=== PATIENT | male | born 1965 | race Caucasian/White ===

== ENCOUNTER → 2016-07-26 | Outpatient (CLI) | payer OTHER ==
[2016-07-26 10:20] LABS: ABSOLUTE EOSINOPHILS # (AUTO) 0.2 10^3/uL (0.0-0.6); ABSOLUTE LYMPHOCYTES (AUTO) 1.3 10^3/uL (0.5-4.7); ABSOLUTE MONOCYTES (AUTO) 0.5 10^3/uL (0.1-1.4); BASOPHILS % (AUTO) 0.4 % (0-2); EOSINOPHILS % (AUTO) 4.8 % (0-6); HEMATOCRIT 46.8 % (37.9-51.0); HGB HCT DIFFERENCE 1.2; LYMPHOCYTES % (AUTO) 26.3 % (13-45); MEAN CORPUSCULAR HGB CONC 34.2 g/dL (32.0-36.0); MEAN CORPUSCULAR VOLUME 91 fl (80-97); MONOCYTES % (AUTO) 9.1 % (3-13); RED BLOOD COUNT 5.15 10^6/uL (4.35-5.55); RED CELL DISTRIBUTION WIDTH 12.9 % (11.5-14.0); SEGMENTED NEUTROPHILS % (AUTO) 59.4 % (42-78); WHITE BLOOD COUNT 5.1 10^3/uL (4.0-10.5)
[2016-07-26 10:39] LABS: ALANINE AMINOTRANSFERASE 274 U/L (21-72); ALBUMIN 4.4 g/dL (3.5-5.0); ALKALINE PHOSPHATASE 118 U/L (38-126); ASPARTATE AMINO TRANSFERASE 164 U/L (17-59); BILIRUBIN,DIRECT 0.4 mg/dL (0.0-0.4); BILIRUBIN,TOTAL 1.3 mg/dL (0.2-1.3); CHOLESTEROL 191.03 mg/dL (0-200); Direct HDL 43 mg/dL (>40); TOTAL PROTEIN 7.1 g/dL (6.3-8.2); TRIGLYCERIDES 130 mg/dL (<150)
[2016-07-26 10:50] LABS: DIRECT LDL 125 mg/dL (<100)
== END ==
LOC: CCC 09:20
DX: E11.8 Type 2 diabetes mellitus with unspecified complications (principal); R74.8 Abnormal levels of other serum enzymes
CPT/HCPCS: 36415; 80061; 80076; 83036; 84443; 85025

== ENCOUNTER → 2016-08-11 | Outpatient (CLI) | payer OTHER | LOC: CCC 12:05 | DX: Z00.00 Encounter for general adult medical examination without abnormal findings (principal) | CPT/HCPCS: 36415; 80074 ==

== ENCOUNTER 2016-09-26 15:00 | Emergency (ER) | payer OTHER ==
[2016-09-26 15:18] VITALS: BP 107/71
--- NOTE | 2016-09-26 17:57 | EKG REPORT ---
SEVERITY:- OTHERWISE NORMAL ECG - SINUS RHYTHM LEFT AXIS DEVIATION : Confirmed by: Cece Blount MD 26-Sep-2016 17:57:09
== END 2016-09-26 15:58 | disposition left against medical advice (07) ==
LOC: ER 15:00
DX: Z53.9 Procedure and treatment not carried out, unspecified reason (principal); R07.9 Chest pain, unspecified
CPT/HCPCS: 93005; 93010

== ENCOUNTER → 2017-10-06 | Outpatient (CLI) | payer MEDICAID ==
--- NOTE | 2017-10-06 13:35 | RADIOLOGY REPORT (SQ) ---
EXAM DESCRIPTION: U/S ABDOMEN LIMITED W/O DOP COMPLETED DATE/TIME: 10/06/2017 10:41 am REASON FOR STUDY: CHRONIC VIRAL HEPATITIS C B18.2 CHRONIC VIRAL HEPATITIS C COMPARISON: CT abdomen and pelvis examination dated 03/20/2013. TECHNIQUE: Dynamic and static grayscale images acquired of the abdomen and recorded on PACS. Additio nal selected color Doppler and spectral images recorded. LIMITATIONS: None. FINDINGS: PANCREAS: The pancreas is suboptimally visualized due to overlying bowel gas. LIVER: The liver measures 18.0 cm, mildly prominent in size. LIVER VASCULATURE: Normal directional flow of the main portal vein and hepatic veins. GALLBLADDER: Prior cholecystectomy. ULTRASOUND-DETECTED HOROWITZ'S SIGN: Negative. INTRAHEPATIC DUCTS AND COMMON DUCT: CBD measures 7.2 mm in diameter in a post cholecystectomy patient . AORTA: No aneurysm. RIGHT KIDNEY: The right kidney measures 12.1 cm in length, normal size. Normal echogenicity. No hilary d or suspicious masses. No hydronephrosis. No calcifications. PERITONEAL AND RIGHT PLEURAL SPACE: No ascites or effusions. OTHER: No other significant findings. IMPRESSION: 1 Prior cholecystectomy. 2 The pancreas is suboptimally visualized due to overlying bowel gas. TECHNICAL DOCUMENTATION: JOB ID: [id number] [employer]- All Rights Reserved Reading location - IP/workstation name: [email or web address]
== END ==
LOC: RAD 10:10
PROVIDERS: ATTEND Internal Medicine Gastroenterology
DX: B18.2 Chronic viral hepatitis C (principal)
CPT/HCPCS: 76705

== ENCOUNTER 2018-09-05 16:28 | Emergency (ER) | payer MEDICAID, OTHER ==
--- NOTE | 2018-09-05 17:29 | ER Document Report ---
ED General - General Chief Complaint: Abscess Stated Complaint: POSSIBLE INSECT BITE Time Seen by Provider: 09/05/18 17:20 Primary Care Provider: SEAN SIMPSON MD [Primary Care Provider] - Follow up as needed Mode of Arrival: Ambulatory Information source: Patient TRAVEL OUTSIDE OF THE [place] IN LAST 30 DAYS: No - HPI Patient complains to provider of: Abscess to left lower extremity Onset: Other - 2 to 3 days ago Onset/Duration: Gradual, Worse Quality of pain: Sharp Severity: Moderate Pain Level: 2 Associated symptoms: denies: Chills, Diarrhea, Fever, Nausea, Vomiting Exacerbated by: Movement Relieved by: Denies Similar symptoms previously: No Recently seen / treated by doctor: No Notes: 53-year-old male with history of type 2 diabetes on multiple meds here with an abscess developing on the back of his left lower extremity. Started off small and getting worse. No drainage. No fevers or shaking chills. No nausea or vomiting. - Related Data Allergies/Adverse Reactions: Corticosteroids (Glucocorticoids) Allergy (Severe, Verified 09/05/18 16:29) Coma Past Medical History - General Information source: Patient - Social History Smoking Status: Smoker,Current Status Unk Family History: DM, Malignancy Endocrine Medical History: Reports: Hx Diabetes Mellitus Type 2 Renal/ Medical History: Denies: Hx Peritoneal Dialysis GI Medical History: Reports: Hx Gastroesophageal Reflux Disease Musculoskeletal Medical History: Reports Hx Musculoskeletal Trauma Past Surgical History: Reports: Hx Cholecystectomy, Hx Tonsillectomy - Immunizations Immunizations up to date: Yes Hx Diphtheria, Pertussis, Tetanus Vaccination: Yes Review of Systems - Review of Systems Notes: Constitutional: No fevers. No chills. EENT: No eye redness. No eye pain. No ear pain. No sore throat. Cardiovascular: No chest pain. No palpitations. Respiratory: No cough. No shortness of breath. No respiratory distress. Gastrointestinal: No abdominal pain. No nausea, vomiting, or diarrhea. Genitourinary: Atraumatic. No lesions. No pain. No discharge. Musculoskeletal: Atraumatic. No swelling. No deformities. Skin: Positive for abscess left lower extremity Lymphatic: No swollen lymph nodes. Neurologic: No headache. No syncope. Psychiatric: No suicidal or homicidal ideation. Physical Exam - Vital signs Vitals: Temp Pulse Resp BP Pulse Ox 98.3 F 91 16 128/76 H 96 09/05/18 16:58 09/05/18 16:58 09/05/18 16:58 09/05/18 16:58 09/05/18 16:58 - Notes Notes: General: Well-developed, well-nourished. In no acute distress. Non-toxic appearing. Cardiac: Well-perfused. Regular rate and rhythm. No murmurs, rubs, or gallops. Pulmonary: No respiratory distress. No cyanosis. Bilateral lung fiels are clear to auscultation. Abdominal: Non-distended. Non-rigid. Bowels sounds are present in all four quadrants. No guarding or rebound. HEENT: Head is atraumatic. Conjunctivae not reddened. No tearing. PERRL. EOMI. Orbits atraumatic. No periorbital swelling or erythema. Oropharynx is without erythema, swelling, or exudates. Neck: Supple. No adenopathy. No meningismus. Dermatologic: There is a semi-fluctuant abscess approximately the diameter of a quarter to the left lower extremity posterior aspect just lateral to the popliteal region. Tender to palpate. No lymphangitis. Chest: Atraumatic. No chest wall tenderness to palpation. Musculoskeletal: Moves all extremities well. No range of motion deficits. no muscular or joint tenderness. No paraspinal muscle tenderness. no midline spinal tenderness or step-off. Genitourinary: Examination deferred Neurologic: No gross neurologic deficits. Psychiatric: Normal mood. Course - Re-evaluation Re-evalutation: 09/05/18 17:29 Will prep for incision and drainage. - Vital Signs Vital signs: Temp Pulse Resp BP Pulse Ox 98.3 F 91 16 128/76 H 96 09/05/18 16:58 09/05/18 16:58 09/05/18 16:58 09/05/18 16:58 09/05/18 16:58 Procedures - Incision and Drainage left LLE Type: Simple Anesthetic type: 1% Lidocaine mL's of anesthetic: 5 Blade size: 11 I&D procedure: Shurclens applied, Sterile dressing applied Incision Method: Incision made by scalpel Amount/type of drainage: moderate pus, cystic material Discharge - Discharge Clinical Impression: Infected sebaceous cyst of skin Condition: Good Disposition: HOME, SELF-CARE Instructions: Post Incision and Drainage, Trimethoprim-Sulfa ([facility]), Abscess ([facility]) Additional Instructions: We will notify you if your culture reveals that you need to be on a different antibiotic based on what we find. The culture typically takes 2-3 business days to fully result. Prescriptions: Sulfamethoxazole/Trimethoprim [Bactrim Ds Tablet] 1 each PO BID 10 Days #20 tablet Referrals: SEAN SIMPSON MD [Primary Care Provider] - Follow up as needed
[2018-09-05 18:19] VITALS: BP 141/81
== END 2018-09-05 18:20 | disposition home or self-care (01) ==
LOC: ER 16:28
DX: L02.416 Cutaneous abscess of left lower limb (principal); L72.3 Sebaceous cyst; E11.9 Type 2 diabetes mellitus without complications; Z79.899 Other long term (current) drug therapy; Z88.8 Allergy status to other drugs, medicaments and biological substances
CPT/HCPCS: 87070; 87075; 87077; 87205; 99283

== ENCOUNTER 2019-04-17 01:15 | Emergency (ER) | payer MEDICAID ==
[2019-04-17 02:57] LABS: APPEARANCE,URINE SLIGHTLY-CLOUDY; BILIRUBIN,URINE MODERATE (NEGATIVE); COLOR,URINE AMBER; GLUCOSE, URINE NEGATIVE (NEGATIVE); KETONES,URINE 80 mg/dL (NEGATIVE); LEUKOCYTE ESTERASE,URINE NEGATIVE (NEGATIVE); NITRITE,URINE NEGATIVE (NEGATIVE); PROTEIN,URINE 30 mg/dL (NEGATIVE); URINE SPECIFIC GRAVITY 1.028
[2019-04-17 03:00] LABS: ABSOLUTE EOSINOPHILS # (AUTO) 0.3 10^3/uL (0.0-0.6); ABSOLUTE LYMPHOCYTES (AUTO) 2.4 10^3/uL (0.5-4.7); ABSOLUTE MONOCYTES (AUTO) 0.5 10^3/uL (0.1-1.4); ABSOLUTE NEUT (AUTO) 5.4 10^3/uL (1.7-8.2); BASOPHILS % (AUTO) 0.4 % (0-2); EOSINOPHILS % (AUTO) 3.7 % (0-6); HEMATOCRIT 49.1 % (37.9-51.0); HEMOGLOBIN 16.9 g/dL (13.5-17.0); LYMPHOCYTES % (AUTO) 27.7 % (13-45); MEAN CORPUSCULAR HEMOGLOBIN 31.9 pg (27.0-33.4); MEAN CORPUSCULAR HGB CONC 34.3 g/dL (32.0-36.0); MEAN CORPUSCULAR VOLUME 93 fl (80-97); MONOCYTES % (AUTO) 5.9 % (3-13); PLATELET COUNT 205 10^3/uL (150-450); RED CELL DISTRIBUTION WIDTH 14.9 % (11.5-14.0); SEGMENTED NEUTROPHILS % (AUTO) 62.3 % (42-78); TOTAL CELLS COUNTED % (AUTO) 100 %; WHITE BLOOD COUNT 8.7 10^3/uL (4.0-10.5)
[2019-04-17] MEDS ORDERED: GABAPENTIN 300 MG CAPSULE PO ONE (03:05)
[2019-04-17] MEDS ORDERED: PROMETHAZINE HCL 25 MG TABLET PO ONE (03:05)
[2019-04-17 03:08] LABS: ALBUMIN 4.4 g/dL (3.5-5.0); ALKALINE PHOSPHATASE 90 U/L (38-126); ANION GAP 12 (5-19); ASPARTATE AMINO TRANSFERASE 20 U/L (17-59); BILIRUBIN,DIRECT 0.2 mg/dL (0.0-0.4); BILIRUBIN,TOTAL 1.1 mg/dL (0.2-1.3); BLOOD UREA NITROGEN 12 mg/dL (7-20); CALCIUM 9.6 mg/dL (8.4-10.2); CARBON DIOXIDE 25 mmol/L (22-30); CHLORIDE 104 mmol/L (98-107); GLUCOSE 147 mg/dL (75-110); POTASSIUM 3.5 mmol/L (3.6-5.0)
[2019-04-17 03:09] LABS: ACETAMINOPHEN < 10 ug/mL (10-30); ALCOHOL < 10 mg/dL (NONE DETECTED); SALICYLATE < 1.0 mg/dL (2.0-20.0); TOTAL PROTEIN 7.6 g/dL (6.3-8.2)
--- NOTE | 2019-04-17 03:09 | ER Document Report ---
ED Substance Abuse / Acc. OD - General Chief Complaint: Medical Clearance Stated Complaint: POSSIBLE HEROINE DETOX Time Seen by Provider: 04/17/19 02:56 Primary Care Provider: JESS KATZ MD [Primary Care Provider] - Follow up as needed Notes: Patient is a 53-year-old male that comes emergency department for chief complaint of opiate withdrawal and wanting detox. Patient states that he has had opiate addiction before, he used to abuse Percocets, he states he has been clean for 3 years but 3 weeks ago he ran into an old friend and they started using heroin. He states for the past 3 weeks they have been using, last dose was 4 AM yesterday, he states that he started getting sick feeling, nauseated, vomited 3 times. He denies abdominal pain, chest pain, fever. He states he came with mobile crisis who recommended him come to the emergency department because they could not find an immediate bed placement. Patient has history of type 2 diabetes, hypertension, CAD with stents. He states he smokes marijuana occasionally, denies cigarette use, denies alcohol. He denies SI or HI. TRAVEL OUTSIDE OF THE [place] IN LAST 30 DAYS: No - Related Data Allergies/Adverse Reactions: Corticosteroids (Glucocorticoids) Allergy (Severe, Verified 09/05/18 16:29) Coma Home Medications: lantus. humalog. metoprolol succinate. metformin. gabapentin. prozac. xanax. aspirin. lipitor Past Medical History - General Information source: Patient - Social History Smoking Status: Never Smoker Frequency of alcohol use: None Drug Abuse: Heroin, Prescription drugs Lives with: Alone Family History: DM, Malignancy Patient has suicidal ideation: No Patient has homicidal ideation: No - Past Medical History Cardiac Medical History: Reports: Hx Coronary Artery Disease, Hx Hypertension Endocrine Medical History: Reports: Hx Diabetes Mellitus Type 2 Renal/ Medical History: Denies: Hx Peritoneal Dialysis GI Medical History: Reports: Hx Gastroesophageal Reflux Disease Musculoskeletal Medical History: Reports Hx Musculoskeletal Trauma Past Surgical History: Reports: Hx Cardiac Catheterization, Hx Cholecystectomy, Hx Coronary Stent, Hx Tonsillectomy - Immunizations Immunizations up to date: Yes Hx Diphtheria, Pertussis, Tetanus Vaccination: Yes Review of Systems - Review of Systems Constitutional: See HPI EENT: No symptoms reported Cardiovascular: No symptoms reported Respiratory: No symptoms reported Gastrointestinal: See HPI Genitourinary: No symptoms reported Male Genitourinary: No symptoms reported Musculoskeletal: No symptoms reported Skin: No symptoms reported Hematologic/Lymphatic: No symptoms reported Neurological/Psychological: See HPI Physical Exam - Vital signs Vitals: Temp Pulse Resp BP Pulse Ox 97.6 F 86 18 135/87 H 99 04/17/19 01:24 04/17/19 01:24 04/17/19 01:24 04/17/19 01:24 04/17/19 01:24 - Notes Notes: GENERAL: Alert, interacts well. Somewhat disheveled, yadira. HEAD: Normocephalic, atraumatic. EYES: Pupils equal, round, and reactive to light. Extraocular movements intact. ENT: Oral mucosa dry, tongue midline. Oropharynx unremarkable. Airway patent. NECK: Full range of motion. Supple. Trachea midline. LUNGS: Clear to auscultation bilaterally, no wheezes, rales, or rhonchi. No respiratory distress. HEART: Regular rate and rhythm. No murmur ABDOMEN: Soft, non-tender. Non-distended. Bowel sounds present in all 4 quadrants. EXTREMITIES: Moves all 4 extremities spontaneously. No edema, normal radial and dorsalis pedis pulses bilaterally. No cyanosis. BACK: no cervical, thoracic, lumbar midline tenderness. No saddle anesthesia, normal distal neurovascular exam. Moves all extremities in full range of motion. NEUROLOGICAL: Alert and oriented x3. Normal speech. Cranial nerves II through XII grossly intact. PSYCH: Normal affect, normal mood. Makes good eye contact, pleasant SKIN: Warm, dry, normal turgor. No rashes or lesions noted. Course - Re-evaluation Re-evalutation: Patient disheveled, appears much older than his stated age, however he has clear lungs, soft abdomen, unremarkable vital signs. He does have very dry mucous membranes, he was given Phenergan and gabapentin for opiate withdrawal symptoms, he tolerated this very well, drink plenty of oral fluids, fell asleep. Before he did so I had a long discussion with the patient. Patient is very determined to enter detox, states he was sober for years until he relapsed for a brief period and he states he is determined to get past the withdrawals and off of opiates. He is not suicidal or homicidal. We did call [facility] and at this moment they do not have an available bed but there might be one opening up soon. Patient states he would prefer to go to [facility] but he is in general looking for a place. CBC, chemistry, urinalysis showing elevated specific gravity, some ketones, but are otherwise unremarkable. EKG without concerning findings, drug screen is consistent with patient's reported uses. Asymptomatic on reevaluation. Patient is medically cleared pending mental health evaluation and hopefully placement in detox. - Vital Signs Vital signs: Temp Pulse Resp BP Pulse Ox 97.6 F 86 18 135/87 H 99 04/17/19 01:24 04/17/19 01:24 04/17/19 01:24 04/17/19 01:24 04/17/19 01:24 - Laboratory Result Diagrams: 04/17/19 02:39 04/17/19 02:39 Laboratory results interpreted by me: 04/17/19 04/17/19 04/17/19 02:39 02:39 02:39 RDW 14.9 H Potassium 3.5 L Glucose 147 H Urine Protein 30 H Urine Ketones 80 H Urine Bilirubin MODERATE H Urine Urobilinogen 4.0 H Salicylates < 1.0 L Acetaminophen < 10 L - EKG Interpretation by Me Additional EKG results interpreted by me: EKG shows sinus rhythm at a rate of 76, QTC of 428, left axis deviation is present, no T wave inversions or ST segment changes in consecutive leads. Discharge - Discharge Clinical Impression: Opiate dependence Qualifiers: Substance use status: in withdrawal Qualified Code(s): F11.23 - Opioid dependence with withdrawal Vomiting Qualifiers: Vomiting type: unspecified Vomiting Intractability: non-intractable Nausea presence: with nausea Qualified Code(s): R11.2 - Nausea with vomiting, unspecified Condition: Stable Disposition: PSYCH HOSP/UNIT Referrals: JESS KATZ MD [Primary Care Provider] - Follow up as needed
[2019-04-17 03:42] LABS: URINE AMPHETAMINES SCREEN NEGATIVE; URINE BARBITURATES SCREEN NEGATIVE; URINE COCAINE SCREEN NEGATIVE; URINE METHADONE SCREEN NEGATIVE; URINE PHENCYCLIDINE SCREEN NEGATIVE
[2019-04-17 03:43] LABS: URINE BENZODIAZEPINES SCREEN UNCONFIRMED POSITIVE; URINE MARIJUANA (THC) SCREEN UNCONFIRMED POSITIVE
[2019-04-17 09:05] VITALS: BP 138/88
--- NOTE | 2019-04-17 10:24 | PSYCHOLOGICAL NOTE ---
Psych Note - Psych Note Date seen by psych provider: 04/17/19 Time seen by psych provider: 08:15 Psych Note: Purpose of Consult: Medical clearance for substance abuse treatment placement Patient is a 53 year old male who presents to the ED via POV with substance abuse concerns when mobile crisis could not find availability with appropriate detox center. Patient's urine drug screen is positive for opiates, benzos, and THC. Per chart review, patient denies SI/HI. Patient states he was clean for 3 years and relapsed at [place] when he "ran into an old friend." Patient is requesting assistance with substance abuse treatment. Patient states he was not feeling well. Clinician will attempt later when patient's condition improves. Impression/Plan: Patient is cleared from acute psychiatric services. Plan is to assist with placement for substance abuse treatment facility. Dr. Mckeon was consulted on the care and management of this patient; attending physician is in agreement with recommendations and disposition.
--- NOTE | 2019-04-17 11:28 | EKG REPORT ---
SEVERITY:- OTHERWISE NORMAL ECG - SINUS RHYTHM LEFT AXIS DEVIATION : Confirmed by: Soni So 17-Apr-2019 11:27:36
== END 2019-04-17 12:45 | disposition home or self-care (01) ==
LOC: ER 01:15
DX: F11.23 Opioid dependence with withdrawal (principal); R11.2 Nausea with vomiting, unspecified; I25.10 Atherosclerotic heart disease of native coronary artery without angina pectoris; I10 Essential (primary) hypertension; E11.9 Type 2 diabetes mellitus without complications
CPT/HCPCS: 93005; 99285; 36415; 80307 ×4; 85025; 80053; 81001; 93010; J3490 ×2

== ENCOUNTER 2019-08-19 20:42 | Emergency (ER) | payer OTHER ==
[2019-08-19 20:48] VITALS: BP 136/86
== END 2019-08-20 00:03 | disposition left against medical advice (07) ==
LOC: ER 20:42
DX: Z53.21 Procedure and treatment not carried out due to patient leaving prior to being seen by health care provider (principal); L98.9 Disorder of the skin and subcutaneous tissue, unspecified

== ENCOUNTER 2019-08-20 00:11 | Emergency (ER) | payer MEDICAID, OTHER ==
[2019-08-20] MEDS ORDERED: LIDOCAINE 1%/EPINEPHRINE INJ 20 ML VIAL INJ ONE (01:04)
--- NOTE | 2019-08-20 01:42 | ER Document Report ---
ED Wound - General Chief Complaint: Wound Infection Stated Complaint: POSSIBLE CYST ON BACK Time Seen by Provider: 08/20/19 00:15 Primary Care Provider: JESS KATZ MD [Primary Care Provider] - Follow up in 3-5 days Notes: Patient is a 54-year-old male who presents to the emergency department with a chief complaint of an abscess to his right side of his back. Patient states that about a month ago he noticed that he had a possible cyst. He states that he spoke with his primary care provider in regards to this issue, and states his primary care provider "did nothing" about the cyst. Patient has not seen buddy matology in regards to this. Patient admits to attempting to squeeze the area, but states that nothing would come out. He denies any fevers, body aches, chills, or any other symptoms. Denies any history of IV drug abuse, but states that he has a history of opioid addiction. He states that he has not gotten help for this. States that he was taking some Percocets at home that he had "leftover from before." Patient had checked into the emergency department earlier in the night, but had to wait in his car due to COVID pandemic and attempted to leave. He then called back and return to the emergency department for this visit. Patient states that he is a diabetic. Denies any spine pain. According to his medical record, he did do heroin, but denies IV use of it. Patient denies any paresthesias, loss of bladder or bowel function, or any other neurological symptoms. TRAVEL OUTSIDE OF THE [place] IN LAST 30 DAYS: No - Related Data Allergies/Adverse Reactions: Corticosteroids (Glucocorticoids) Allergy (Severe, Verified 09/05/18 16:29) Coma Past Medical History - General Information source: Patient - Social History Smoking Status: Never Smoker Family History: DM, Malignancy Patient has homicidal ideation: No - Past Medical History Cardiac Medical History: Reports: Hx Coronary Artery Disease, Hx Hypertension Endocrine Medical History: Reports: Hx Diabetes Mellitus Type 2 Renal/ Medical History: Denies: Hx Peritoneal Dialysis GI Medical History: Reports: Hx Gastroesophageal Reflux Disease Musculoskeletal Medical History: Reports Hx Musculoskeletal Trauma Past Surgical History: Reports: Hx Cardiac Catheterization, Hx Cholecystectomy, Hx Coronary Stent, Hx Tonsillectomy - Immunizations Immunizations up to date: Yes Hx Diphtheria, Pertussis, Tetanus Vaccination: Yes Review of Systems - Review of Systems Notes: REVIEW OF SYSTEMS: CONSTITUTIONAL : Denies recent illness. Denies recent unintentional weight loss. Denies fever, chills, or sweats. EENT: Denies eye, ear, throat, or mouth pain, discharge, or symptoms. Denies nasal or sinus congestion. CARDIOVASCULAR: Denies chest pain. RESPIRATORY: Denies shortness of breath, cough, congestion, difficulty breathing, or wheezing. GASTROINTESTINAL: Denies nausea, vomiting, and diarrhea. Denies abdominal pain. Denies constipation. GENITOURINARY: Denies difficulty urinating, burning, blood in urine, urgency or frequency. MUSCULOSKELETAL: Denies neck and back pain. Denies joint pain or swelling. SKIN: See HPI. HEMATOLOGIC : Denies easy bruising or bleeding. LYMPHATIC: Denies swollen, painful, enlarged glands. NEUROLOGICAL: Denies no numbness or tingling denies weakness. Denies headache. Denies altered mental status. Denies alteration in speech. PSYCHIATRIC: Denies stress, anxiety, alteration in sleep patterns, or depression. All other systems reviewed and negative. Physical Exam - Vital signs Vitals: Temp Pulse Resp BP Pulse Ox 99.4 F 109 H 20 116/77 100 08/20/19 00:14 08/20/19 00:14 08/20/19 00:14 08/20/19 00:08/20/19 00:14 - Notes Notes: PHYSICAL EXAMINATION: GENERAL: Appears disheveled, older than stated age, no acute distress. HEAD: Normocephalic, atraumatic. EYES: PERRL, conjunctiva normal, all extraocular movements intact, sclera nonicteric ENT: Dry mucous membranes. NECK: Supple, no noticeable swelling, redness, rash. Normal range of motion. LUNGS: Equal breath sounds bilaterally and clear to auscultation. No wheezes rales or rhonchi. CARDIOVASCULAR: S1-S2, regular rate, regular rhythm. Radial pulses 2+, normal. ABDOMEN: Normoactive bowel sounds. Soft, nontender, no guarding, no rebound tenderness, and no masses palpated. EXTREMITIES: Normal strength and range of motion, no pitting or edema. No cyanosis. NEUROLOGICAL: Moves all extremities upon command. Strength 5/5 in all extremities. PSYCH: Normal mood, normal affect. SKIN: Warm, dry. Abscess noted to right side of back. See diagram and procedure note for details. Course - Re-evaluation Re-evalutation: 08/20/19 03:55 Differential diagnosis includes but normal limited to: abscess, dermoid cyst, sebaceous cyst, furnucle, or others. Based on patient's physical exam and history, this is an abscess developed from a sebaceous cyst. It was drained in the ER. There is surrounding cellulitis. Based on patient's physical exam and these factors, they will treated with antibiotics. See procedure note. A very low suspicion for the abcess to have spinal involvement. Patient is to follow-up here in the emergency department in 2 days to have his packing removed. He is in agreement with this plan. He expressed gratefulness for his care. Follow-up precautions were given. Verbal discharge instructions were given to the patient. They verbalized understa nding. They are stable for discharge. - Vital Signs Vital signs: Temp Pulse Resp BP Pulse Ox 98.8 F 87 18 115/76 100 08/20/19 03:42 08/20/19 03:42 08/20/19 03:42 08/20/19 03:42 08/20/19 03:42 - Laboratory Result Diagrams: 08/20/19 02:24 08/20/19 02:24 Laboratory results interpreted by me: 08/20/19 08/20/19 02:24 02:24 MCH 33.8 H Sodium 135.2 L Creatinine 0.48 L Glucose 252 H Procedures - Incision and Drainage Right medial back Type: Simple, Single Anesthetic type: 1% Lidocaine w/epi mL's of anesthetic: 10 Blade size: 11 I&D procedure: Shurclens applied, Iodoform packing placed, Sterile dressing applied Incision Method: Incision made with needle Amount/type of drainage: 15 mls/purulent; blood; with cyst casing Adult Front & Back picture: 1 - Abscess with surrounding cellulitis. Discharge - Discharge Clinical Impression: Abscess Cellulitis Qualifiers: Site of cellulitis: trunk Site of cellulitis of trunk: back Qualified Code(s): L03.312 - Cellulitis of back [any part except buttock] Condition: Stable Disposition: HOME, SELF-CARE Instructions: Soap Cleansing ([facility]) Additional Instructions: You were seen for an abscess that required drainage. Please clean this area with soap and water twice daily and apply a topical antibiotic. Dress the area after each cleaning. Please return if you develop fever, vomiting, the pain at the site worsens, you notice spreading redness from the area, or you have any other symptoms that are concerning to you. Return on morning to have your wound rechecked. Keep the packing in until then. The rash is likely due to infection of your skin. You need to take the antibiotics as prescribed. Do not stop even if the rash goes away until you have completed all the antibiotics. The area of redness was traced out here in the emergency department with a marking pen. You need to return to emergency department if the redness spreads outside of this area by more than 2 cm in any direction. You should also return if you develop fevers with temperature greater than 101, persistent vomiting, worsening pain, or have any other symptoms that are concerning to you. Prescriptions: Clindamycin HCl [Cleocin 150 mg Capsule] 300 mg PO Q6 7 Days #56 capsule Referrals: JESS KATZ MD [Primary Care Provider] - Follow up in 3-5 days
[2019-08-20 02:49] LABS: ABSOLUTE EOSINOPHILS # (AUTO) 0.1 10^3/uL (0.0-0.6); ABSOLUTE LYMPHOCYTES (AUTO) 2.1 10^3/uL (0.5-4.7); ABSOLUTE MONOCYTES (AUTO) 0.5 10^3/uL (0.1-1.4); ABSOLUTE NEUT (AUTO) 4.8 10^3/uL (1.7-8.2); BASOPHILS % (AUTO) 0.3 % (0-2); EOSINOPHILS % (AUTO) 1.9 % (0-6); HEMATOCRIT 42.1 % (37.9-51.0); HEMOGLOBIN 14.8 g/dL (13.5-17.0); LYMPHOCYTES % (AUTO) 27.3 % (13-45); MEAN CORPUSCULAR HEMOGLOBIN 33.8 pg (27.0-33.4); MEAN CORPUSCULAR HGB CONC 35.3 g/dL (32.0-36.0); MEAN CORPUSCULAR VOLUME 96 fl (80-97); MONOCYTES % (AUTO) 6.9 % (3-13); PLATELET COUNT 179 10^3/uL (150-450); RED BLOOD COUNT 4.39 10^6/uL (4.35-5.55); RED CELL DISTRIBUTION WIDTH 13.2 % (11.5-14.0); SEGMENTED NEUTROPHILS % (AUTO) 63.6 % (42-78); TOTAL CELLS COUNTED % (AUTO) 100 %; WHITE BLOOD COUNT 7.5 10^3/uL (4.0-10.5)
[2019-08-20 02:57] LABS: ALBUMIN 4.2 g/dL (3.5-5.0); ALKALINE PHOSPHATASE 87 U/L (38-126); ANION GAP 7 (5-19); ASPARTATE AMINO TRANSFERASE 22 U/L (17-59); BILIRUBIN,TOTAL 0.9 mg/dL (0.2-1.3); BLOOD UREA NITROGEN 12 mg/dL (7-20); CARBON DIOXIDE 27 mmol/L (22-30); CHLORIDE 101 mmol/L (98-107); GLUCOSE 252 mg/dL (75-110); POTASSIUM 3.7 mmol/L (3.6-5.0)
[2019-08-20] MEDS ORDERED: CLINDAMYCIN HCL 150 MG CAPSULE PO ONE (03:38)
[2019-08-20 03:46] VITALS: BP 115/76
== END 2019-08-20 04:05 | disposition home or self-care (01) ==
LOC: ER 00:11
PROC: 0H96XZZ Drainage of Back Skin, External Approach (ICD-10-PCS; principal; 2019-08-20)
DX: L02.212 Cutaneous abscess of back [any part, except buttock and flank] (principal); L03.312 Cellulitis of back [any part except buttock and flank]; Z79.899 Other long term (current) drug therapy; E11.9 Type 2 diabetes mellitus without complications; Z88.8 Allergy status to other drugs, medicaments and biological substances; I25.10 Atherosclerotic heart disease of native coronary artery without angina pectoris; I10 Essential (primary) hypertension
CPT/HCPCS: 99283; 36415; 87040; 85025; 80053; 10060; J3490

== ENCOUNTER 2019-09-11 12:13 | Emergency (ER) | payer MEDICAID ==
[2019-09-11] MEDS ORDERED: CEFTRIAXONE INJ 1000 MG VIAL IV ONE (12:55)
--- NOTE | 2019-09-11 12:56 | ER Document Report ---
ED Medical Screen (RME) - General Stated Complaint: BACK CYST RECHECK/POSSIBLE SCABIES Time Seen by Provider: 09/11/19 12:49 Mode of Arrival: Ambulatory Information source: Patient Notes: HPI; 54-year-old male past medical history significant for coronary artery disease diabetes, [place] presents the emergency room for recheck of an abscess to his back that he had lanced on August 19. Never came back for recheck. Was disc harged home on clindamycin. Which he states he just finished 3 days ago. States the wound has been draining and is more painful now. Also complaining of a persistent rash to his bilateral upper and lower extremities for several weeks. Positive scabies exposure to a neighbor. Concern for scabies. Patient states he used his dogs permethrin shampoo last night without relief. PE: Alert and oriented x3. No acute distress noted. Lungs are clear to auscultation without rales rhonchi wheezes. Heart regular rate rhythm without murmurs rubs or gallops. He has a irregular shaped erythematous lesion to his right lower mid back. It is warm and tender to palpation. There is no active discharge or draining noted patient has multiple lesions noted to his bilateral upper and lower extremities that are erythematous and warm. No active discharge or draining noted. I have greeted and performed a rapid initial assessment of this patient. A comprehensive ED assessment and evaluation of the patient, analysis of test results and completion of the medical decision making process will be conducted by additional ED providers. I have specifically instructed the patient or family members with the patient to immediately return to any nursing staff should anything change in the patient's condition or with their chief complaint. TRAVEL OUTSIDE OF THE [place] IN LAST 30 DAYS: No - Related Data Allergies/Adverse Reactions: Corticosteroids (Glucocorticoids) Allergy (Severe, Verified 09/11/19 12:47) Coma Past Medical History - Past Medical History Cardiac Medical History: Reports: Hx Coronary Artery Disease, Hx Hypertension Endocrine Medical History: Reports: Hx Diabetes Mellitus Type 2 Renal/ Medical History: Denies: Hx Peritoneal Dialysis GI Medical History: Reports: Hx Gastroesophageal Reflux Disease Musculoskeltal Medical History: Reports Hx Musculoskeletal Trauma Past Surgical History: Reports: Hx Cardiac Catheterization, Hx Cholecystectomy, Hx Coronary Stent, Hx Tonsillectomy - Immunizations Immunizations up to date: Yes Hx Diphtheria, Pertussis, Tetanus Vaccination: Yes Physical Exam - Vital signs Vitals: Temp Pulse Resp BP Pulse Ox 98.5 F 90 16 115/71 98 09/11/19 12:17 09/11/19 12:17 09/11/19 12:17 09/11/19 12:17 09/11/19 12:17 Course - Vital Signs Vital signs: Temp Pulse Resp BP Pulse Ox 98.5 F 90 16 115/71 98 09/11/19 12:17 09/11/19 12:17 09/11/19 12:17 09/11/19 12:17 09/11/19 12:17
--- NOTE | 2019-09-11 14:12 | ER Document Report ---
HPI - HPI Patient complains to provider of: skin rash Time Seen by Provider: 09/11/19 12:49 Onset: Other - 3 weeks Onset/Duration: Persistent Pain Level: 3 Context: Patient complains of pruritic skin rash for the past 3 weeks. Patient is concerned that he has scabies and would like a prescription for Elimite. Patient states that he has to pick at his skin so that he can get the insects out from underneath the skin. Patient states that he is trying to go to an inpatient detox facility and he is concerned that due to his rash they will not accept him. Patient denies any fever. Patient denies any suicidal homicidal ideation. Patient states that he has been abusing prescription pills. Associated Symptoms: Other - Skin rash. denies: Nonproductive cough, Fever, Headache Exacerbated by: Denies Relieved by: Denies Similar symptoms previously: Yes Recently seen / treated by doctor: Yes - ROS ROS below otherwise negative: Yes Systems Reviewed and Negative: Yes All other systems reviewed and negative - CONSTITUTIONAL Constitutional: DENIES: Fever, Chills - NEURO Neurology: DENIES: Headache - RESPIRATORY Respiratory: DENIES: Trouble Breathing, Coughing - GASTROINTESTINAL Gastrointestinal: DENIES: Nausea, Patient vomiting - DERM Skin Color: Normal Skin Problems: Rash Past Medical History - General Information source: Patient - Social History Smoking Status: Never Smoker Frequency of alcohol use: None Drug Abuse: Prescription drugs Occupation: None Family History: DM, Malignancy Patient has homicidal ideation: No - Past Medical History Cardiac Medical History: Reports: Hx Coronary Artery Disease, Hx Hypertension Endocrine Medical History: Reports: Hx Diabetes Mellitus Type 2 Renal/ Medical History: Denies: Hx Peritoneal Dialysis GI Medical History: Reports: Hx Gastroesophageal Reflux Disease Musculoskeletal Medical History: Reports Hx Musculoskeletal Trauma Past Surgical History: Reports: Hx Cardiac Catheterization, Hx Cholecystectomy, Hx Coronary Stent, Hx Tonsillectomy - Immunizations Immunizations up to date: Yes Hx Diphtheria, Pertussis, Tetanus Vaccination: Yes Vertical Provider Document - CONSTITUTIONAL Agree With Documented VS: Yes Exam Limitations: No Limitations General Appearance: WD/WN, No Apparent Distress - INFECTION CONTROL TRAVEL OUTSIDE OF THE [place] IN LAST 30 DAYS: No - HEENT HEENT: Atraumatic, Normocephalic - NECK Neck: Normal Inspection, Supple. negative: Lymphadenopathy-Left, Lymphadenopathy-Right - RESPIRATORY Respiratory: Breath Sounds Normal, No Respiratory Distress - CARDIOVASCULAR Cardiovascular: Regular Rate, Regular Rhythm - GI/ABDOMEN Gastrointestinal: Abdomen Soft, Abdomen Non-Tender, No Organomegaly, Normal Bowel Sounds - MUSCULOSKELETAL/EXTREMETIES Musculoskeletal/Extremeties: MAEW - NEURO Level of Consciousness: Awake, Alert, Appropriate Motor/Sensory: No Motor Deficit - DERM Integumentary: Warm, Dry, Rash - Multiple excoriated scabbed skin lesion to extremities and trunk. Patient with large confluent area to the lower back. No surrounding erythema, no fluctuance no drainable abscess Course - Re-evaluation Re-evalutation: 09/11/19 14:41 Patient with multiple excoriated skin lesions to trunk and extremities in various stages of healing, no surrounding erythema, no concern for cellulitis or abscess at this time. Patient encouraged to avoid picking at the skin lesions. Patient states that he feels as though he has scabies under his skin that are defecating and that he needs to pick at the skin so that they can get out. Patient is requesting a prescription for the Elimite cream. Patient encouraged to follow-up with a nursing education consultant for any persistent problems. - Vital Signs Vital signs: Temp Pulse Resp BP Pulse Ox 98.5 F 90 16 115/71 98 09/11/19 12:48 09/11/19 12:17 09/11/19 12:17 09/11/19 12:17 09/11/19 12:17 - Laboratory Result Diagrams: 09/11/19 13:54 09/11/19 13:54 Laboratory results interpreted by me: 09/11/19 14:41 Labs- All tests 24 hr 09/11/19 09/11/19 09/11/19 13:54 13:54 13:54 WBC 5.7 RBC 4.21 L Hgb 14.1 Hct 40.7 MCV 97 MCH 33.5 H MCHC 34.7 RDW 13.9 Plt Count 190 Lymph % (Auto) 25.1 Saunders % (Auto) 5.8 Eos % (Auto) 2.6 Baso % (Auto) 0.2 Absolute Neuts (auto) 3.8 Absolute Lymphs (auto) 1.4 Absolute Monos (auto) 0.3 Absolute Eos (auto) 0.2 Absolute Basos (auto) 0.0 Seg Neutrophils % 66.3 Sodium 132.8 L Potassium 4.2 Chloride 100 Carbon Dioxide 24 Anion Gap 9 BUN 12 Creatinine 0.47 L Est GFR ( Amer) > 60 Est GFR (MDRD) Non-Af > 60 Glucose 307 H Lactic Acid 1.3 Calcium 8.7 Total Bilirubin 0.7 Direct Bilirubin 0.0 Neonat Total Bilirubin Not Reportable Neonat Direct Bilirubin Not Reportable Neonat Indirect Bili Not Reportable AST 21 ALT 16 Alkaline Phosphatase 82 Total Protein 6.9 Albumin 4.0 Discharge - Discharge Clinical Impression: Skin rash, Scabies Condition: Stable Disposition: HOME, SELF-CARE Instructions: Anti-Mite Skin Creams, Scabies ([facility]) Additional Instructions: Return immediately for any new or worsening symptoms Followup with your primary care provider, call tomorrow to make a followup appointment Avoid picking at the skin as this can delay the skin lesions healing Prescriptions: Permethrin [Acticin 5% Cream 60 gm] 1 applic TP ONCE PRN #1 tube PRN Reason: Hydroxyzine Pamoate [Vistaril 50 mg Capsule] 50 mg PO TID PRN #15 capsule PRN Reason: Referrals: UZMA LANGFORD DO [ACTIVE STAFF] - Follow up as needed
[2019-09-11 14:16] LABS: ABSOLUTE EOSINOPHILS # (AUTO) 0.2 10^3/uL (0.0-0.6); ABSOLUTE LYMPHOCYTES (AUTO) 1.4 10^3/uL (0.5-4.7); ABSOLUTE MONOCYTES (AUTO) 0.3 10^3/uL (0.1-1.4); ABSOLUTE NEUT (AUTO) 3.8 10^3/uL (1.7-8.2); BASOPHILS % (AUTO) 0.2 % (0-2); EOSINOPHILS % (AUTO) 2.6 % (0-6); HEMATOCRIT 40.7 % (37.9-51.0); HEMOGLOBIN 14.1 g/dL (13.5-17.0); LYMPHOCYTES % (AUTO) 25.1 % (13-45); MEAN CORPUSCULAR HEMOGLOBIN 33.5 pg (27.0-33.4); MEAN CORPUSCULAR HGB CONC 34.7 g/dL (32.0-36.0); MEAN CORPUSCULAR VOLUME 97 fl (80-97); MONOCYTES % (AUTO) 5.8 % (3-13); PLATELET COUNT 190 10^3/uL (150-450); RED BLOOD COUNT 4.21 10^6/uL (4.35-5.55); RED CELL DISTRIBUTION WIDTH 13.9 % (11.5-14.0); SEGMENTED NEUTROPHILS % (AUTO) 66.3 % (42-78); TOTAL CELLS COUNTED % (AUTO) 100 %; WHITE BLOOD COUNT 5.7 10^3/uL (4.0-10.5)
[2019-09-11 14:39] LABS: ALKALINE PHOSPHATASE 82 U/L (38-126); ANION GAP 9 (5-19); ASPARTATE AMINO TRANSFERASE 21 U/L (17-59); BILIRUBIN,TOTAL 0.7 mg/dL (0.2-1.3); BLOOD UREA NITROGEN 12 mg/dL (7-20); CALCIUM 8.7 mg/dL (8.4-10.2); CARBON DIOXIDE 24 mmol/L (22-30); CHLORIDE 100 mmol/L (98-107); GLUCOSE 307 mg/dL (75-110); POTASSIUM 4.2 mmol/L (3.6-5.0); TOTAL PROTEIN 6.9 g/dL (6.3-8.2)
[2019-09-11 15:02] VITALS: BP 116/70
== END 2019-09-11 15:02 | disposition home or self-care (01) ==
LOC: ER 12:13
DX: B86 Scabies (principal); I25.10 Atherosclerotic heart disease of native coronary artery without angina pectoris; I10 Essential (primary) hypertension; E11.9 Type 2 diabetes mellitus without complications; Z90.49 Acquired absence of other specified parts of digestive tract
CPT/HCPCS: 99283; 96365; 36415; 83605; 85025; 80053; J0696

== ENCOUNTER 2019-09-15 20:08 | Emergency (ER) | payer MEDICAID ==
--- NOTE | 2019-09-15 20:35 | ER Document Report ---
HPI - HPI Patient complains to provider of: Scabies outbreak Time Seen by Provider: 09/15/19 20:29 Onset/Duration: Sudden Context: This 54-year-old male who was treated for scabies 3 days ago he has 2 more lesions coming back up and was wanting to get a second treatment to be sure. Exacerbated by: Denies Relieved by: Denies Similar symptoms previously: Yes - This is a 54-year-old male who was diagnosed with scabies 3 days ago was tr - REPRODUCTIVE Reproductive: DENIES: : Past Medical History - General Information source: Patient - Social History Smoking Status: Current Every Day Smoker Cigarette use (# per day): No Chew tobacco use (# tins/day): No Smoking Education Provided: No Family History: DM, Malignancy - Past Medical History Cardiac Medical History: Reports: Hx Coronary Artery Disease, Hx Hypertension Endocrine Medical History: Reports: Hx Diabetes Mellitus Type 2 Renal/ Medical History: Denies: Hx Peritoneal Dialysis GI Medical History: Reports: Hx Gastroesophageal Reflux Disease Musculoskeletal Medical History: Reports Hx Musculoskeletal Trauma Past Surgical History: Reports: Hx Cardiac Catheterization, Hx Cholecystectomy, Hx Coronary Stent, Hx Tonsillectomy - Immunizations Immunizations up to date: Yes Hx Diphtheria, Pertussis, Tetanus Vaccination: Yes Vertical Provider Document - CONSTITUTIONAL Agree With Documented VS: Yes - INFECTION CONTROL TRAVEL OUTSIDE OF THE [place] IN LAST 30 DAYS: No - HEENT HEENT: Atraumatic, Conjuctival Injection, Normocephalic, PERRLA - NECK Neck: Normal Inspection - RESPIRATORY Respiratory: Breath Sounds Normal - CARDIOVASCULAR Cardiovascular: Regular Rate, Regular Rhythm - GI/ABDOMEN Gastrointestinal: Abdomen Soft, Abdomen Non-Tender - REPRODUCTIVE Male Genitalia: Normal Inspection - BACK Back: Normal Inspection - MUSCULOSKELETAL/EXTREMETIES Musculoskeletal/Extremeties: MAEW - NEURO Level of Consciousness: Awake, Alert, Appropriate Course - Vital Signs Vital signs: Temp Pulse Resp BP Pulse Ox 99.0 F 109 H 18 133/73 H 97 09/15/19 20:13 09/15/19 20:13 09/15/19 20:13 09/15/19 20:13 09/15/19 20:13 Discharge - Discharge Clinical Impression: Scabies Disposition: HOME, SELF-CARE Instructions: Scabies ([facility]) Prescriptions: Permethrin [Nix 1% Lotion 59 ml] 1 applic TP ONCE PRN #1 bottle PRN Reason:
[2019-09-15 20:57] VITALS: BP 133/74
== END 2019-09-15 21:09 | disposition home or self-care (01) ==
LOC: ER 20:08
DX: B86 Scabies (principal); F17.200 Nicotine dependence, unspecified, uncomplicated; I25.10 Atherosclerotic heart disease of native coronary artery without angina pectoris; I10 Essential (primary) hypertension; E11.9 Type 2 diabetes mellitus without complications
CPT/HCPCS: 99281